=== PATIENT | female | born 2000 | race Hispanic/Latino ===

== ENCOUNTER 2021-08-28 14:15 | Emergency (ER) | payer BC ==
[~2021-08-28] VITALS: Ht 157.5 cm; Wt 77.1 kg
== END 2021-08-28 15:50 | disposition home or self-care (01) ==
LOC: FSED 14:25
DX: M79.675 Pain in left toe(s) (principal); S90.122A Contusion of left lesser toe(s) without damage to nail, initial encounter; W20.8XXA Other cause of strike by thrown, projected or falling object, initial encounter; Y92.008 Other place in unspecified non-institutional (private) residence as the place of occurrence of the external cause; E11.9 Type 2 diabetes mellitus without complications
CPT/HCPCS: 99282